=== PATIENT | male | born 1965 | race Asian ===

== ENCOUNTER → 2016-10-25 | Outpatient (CLI) | payer BC | LOC: CIMAGING 12:42 | PROVIDERS: ATTEND Family Medicine | DX: M25.561 Pain in right knee (principal); M25.461 Effusion, right knee; M17.11 Unilateral primary osteoarthritis, right knee | CPT/HCPCS: 73562-PO ==

== ENCOUNTER → 2017-04-08 | Outpatient (CLI) | payer OTHER, BC | LOC: CIMAGING 16:33 | PROVIDERS: ATTEND Family Medicine | DX: M54.2 Cervicalgia (principal) | CPT/HCPCS: 72040-PO ==